=== PATIENT | male | born 1980 | race African-American/Black ===

== ENCOUNTER 2022-03-12 22:31 | Emergency (ER) | payer OTHER, SELFPAY ==
[2022-03-12 22:43] VITALS: BP 125/78; PULSE 81; RESP 20; TEMP 36.8; O2SAT 98; BMI 26.6
--- NOTE | 2022-03-12 23:07 | ED.MALEGU ---
HPI - Male Genitourinary General Chief complaint: Urogenital Problems, Male Stated complaint: Sharp pains in groin & rectum Time Seen by Provider: 03/12/22 22:55 History of Present Illness HPI Narrative: Pt is a 41 year old gentleman who presents with pain and fullness in his perineum. Pt has been having symptoms or fullness as well as occasional urethral discharge for the past month. Pt engages in unprotected heterosexual sex with multiple partners. Pt has a history of STD in the past. Pt is able to pass his urine without difficulty. No fever or chills. No nausea or vomiting. No history of HIV. Pt has no abd pain or change in sensorium. Pt also has a draining cyst onthe right buttocks medially which has been causing discomfort and drainage for the past several months. Pt states that he has not been taking care of himself and would like to start making sure that his health is ok. Related Data Home Medications Medication Instructions Recorded Confirmed No Known Home Medications 03/12/22 03/12/22 Allergies Allergy/AdvReac Type Severity Reaction Status Date / Time No Known Drug Allergies Allergy Verified 03/12/22 22:46 Review of Systems Status of ROS: Reports: 10 or more systems reviewed and unremarkable except as noted in History and below [facility] Medical History (Updated 03/12/22 @ 23:40 by Usama Tai MD) Asthma Surgical History (Updated 03/12/22 @ 23:31 by Curt Hassan RN) No significant past surgical history Exam Narrative: Exam Narrative: EXAM GENERAL: Patient appears comfortable and well. EYES: No scleral icterus. ENT: Tympanic membranes and oropharynx normal. THYROID: no thyroid nodules or thyromegaly. LYMPH: No supraclavicular or cervical lymphadenopathy. SKIN: Pt has a palpable area of fullness in the right medial buttocks without erythema 4 x 4 cm in diameter. EXT: No dependent lower extremity pedal edema. HEART: Regular rate and rhythm with no murmurs, rubs, or gallops. LUNGS: Clear to auscultation bilaterally with no crackles or wheezes. ABD: Soft, non tender, non distended. PSYCH: Good eye contact, speech is not pressured. exam shows a normal circumcised male with no testicular swelling or pain. No urethral discharge. Const: Vital Signs, click to edit/add: Vital Signs - 24 hr 03/12/22 22:43 Temperature 98.2 F Pulse Rate [Right Pulse Oximeter] 81 Respiratory Rate 20 Blood Pressure [Ri ght Upper Arm] 125/78 Pulse Oximetry 98 Oxygen Delivery Me thod Room Air Course Course Hospital Course: Pt seen and examined. Vital Signs Vital signs: Initial Vital Signs Temperature 98.2 F 03/12/22 22:43 Temperature Source Temporal Artery Scan 03/12/22 22:43 Pulse Rate 81 03/12/22 22:43 Respiratory Rate 20 03/12/22 22:43 Blood Pressure 125/78 03/12/22 22:43 Blood Pressure Mean 93 03/12/22 22:43 Blood Pressure Position Sitting 03/12/22 22:43 Pulse Oximetry 98 03/12/22 22:43 Oxygen Delivery Method 03/12/22 22:43 Vital Signs Temperature 98.2 F 03/12/22 22:43 Pulse Rate 81 03/12/22 22:43 Respiratory Rate 20 03/12/22 22:43 Blood Pressure 125/78 03/12/22 22:43 Pulse Oximetry 98 03/12/22 22:43 Oxygen Delivery Method 03/12/22 22:43 Temperature 98.2 F 03/12/22 22:43 Pulse Rate 81 03/12/22 22:43 Respiratory Rate 20 03/12/22 22:43 Blood Pressure 125/78 03/12/22 22:43 Pulse Oximetry 98 03/12/22 22:43 Oxygen Delivery Method 03/12/22 22:43 MDM - Male Genitourinary MDM Narrative Medical decision making narrative: Pt presents with urinary symptoms after multiple unprotected heterosexual encounters as well as what appears to be a cyst (potentially pilonidal) on the right buttocks. Exam otherwise normal with normal vital signs. I did treat with Azithromycin and Rocephin and collected ua, uc, and gc. Pt will follow up with me in the office for reassessment and likely surgical referral for cyst. Antibiotic regiment chosen due to pt's admitted noncompliance with medications. Differential Diagnosis Differential diagnosis: Likely urinary tract infection, urethritis, epididymitis and prostatitis Discharge Plan Discharge Clinical Impression: STD (male), Cyst Condition: Stable Additional Instructions: Both antibiotics are one time doses Symptomatic treatment for cyst Follow up with Dr. Tai in 2 weeks. Activity Level: No Restrictions Discharge Diet: Regular Prescriptions: No Action No Known Home Medications Follow Up/Referrals: Provider,Not a Local [Primary Care Provider] - Stand Alone Forms: Comfort Line Info Instructions
[2022-03-12 23:24] LABS: Appearance Urine Clear (Clear); Bilirubin Urine Negative (Negative); Blood Urine 1+ (Negative); Color Urine Yellow (Yellow); Glucose Urine Negative (Negative); Ketones Urine Negative (Negative); Leukocyte Esterase Urine Trace (Negative); Nitrite Urine Negative (Negative); Protein Urine Negative (Negative); Specific Gravity Urine >= 1.030 (1.000-1.030); Urobilinogen Urine 0.2 (0.2-1.0)
[2022-03-12 23:45] LABS: Bacteria Urine Few; Squamous Epithelial Cell Urine Few (None-Few)
[2022-03-12] MEDS: AZITHROMYCIN 250 MG TABLET 1000 MG PO (23:51)
[2022-03-12] MEDS: cefTRIAXone 1 GM VIAL 0.5 GM IM (23:51)
[2022-03-12] MEDS: LIDOCAINE 1% 5 ml (pf) 5 ML VIAL 2.1 ML IM (23:51)
[2022-03-12 23:52] VITALS: BP 131/81; PULSE 82; RESP 20; TEMP 36.7; O2SAT 98
[2022-03-12 23:53] VITALS: BP 131/81; PULSE 82; RESP 20; TEMP 36.7
[2022-03-14 12:55] LABS: GC DNA Amplified* NOT DETECTED (No Detected)
[2022-03-14 13:00] LABS: Chlamydia DNA Amplified* DETECTED (No Detected)
== END 2022-03-12 23:54 | disposition home or self-care (01) ==
PROVIDERS: Emergency Provider Internal Medicine
DX: L05.91 Pilonidal cyst without abscess (principal); A71.9 Trachoma, unspecified
CPT/HCPCS: 81003; 81015; 87086; 87491; 87591; 96372; 99283; A9270; J0696

== ENCOUNTER 2022-04-23 15:23 | Outpatient (CLI) | payer OTHER, SELFPAY ==
[2022-04-23 18:00] LABS: Albumin* 4.3 g/dL (3.3-5.0); Chloride* 106 mmol/L (96-114); Potassium* 3.8 mmol/L (3.6-5.1); Sodium* 140 mmol/L (135-149)
[2022-04-23 18:02] LABS: Carbon Dioxide* 28 mmol/L (20-32); Cholesterol* 139 mg/dL (90-199); Estimated Glomerular Filt Rate 96 ml/min
[2022-04-23 18:03] LABS: Alanine Aminotransferase* 19 U/L (4-50); Alkaline Phosphatase* 69 U/L (40-150); Aspartate Amino Transferase* 27 U/L (12-35); Bilirubin Total* 0.9 mg/dL (0.1-1.5); Blood Urea Nitrogen* 12 mg/dL (5-24); Calcium* 9.3 mg/dL (8.4-10.6); Glucose* 91 mg/dL (60-115); HDL Cholesterol* 64 mg/dL (>=40); LDL Cholesterol Calculated 66 mg/dL (<100); Total Protein* 7.2 g/dL (6.0-8.3); Triglycerides* 46 mg/dL (40-149)
== END 2022-04-23 15:24 | disposition home or self-care (01) ==
PROVIDERS: Visit Provider Internal Medicine
DX: R30.0 Dysuria (principal); Z30.09 Encounter for other general counseling and advice on contraception; Z13.6 Encounter for screening for cardiovascular disorders
CPT/HCPCS: 80053; 80061; 87086

== ENCOUNTER 2023-05-08 15:22 | Outpatient (CLI) | payer OTHER, SELFPAY ==
--- OUTSIDE RECORDS SUMMARY | 2023-05-08 15:24 | XMS_ITS | Clinical Summary ---
Author Name Unknown Organization [facility] Address [place], [place] [address] Care Team Providers Care [employer] Crewmember Name Role Phone Pcp, No Primary Care Provider Unavailabl e Allergies No known active allergies Medications Medication Sig Dispensed Refills Start Date End Date Status cyclobenzaprine (FLEXERIL) 10 mg tabletIndications:Str ain of right hamstring muscle, initial encounter Take 1 Tablet (10 mg) by mouth 3 times daily if needed for Muscle Spasm. 30 Tablet 0 08/23/2022 Active Active Problems Problem Noted Date Diagnosed Date Tobacco abuse 11/09/2010 Immunizations Name Administration Dates Next Due Influenza, IIV3 (Age >=3 years) 12/30/2012 Tdap 03/26/2013,09/30/2009 Social History Tobacco Use Types Packs/Day Years Used Date Smoking Tobacco: Every Day Smokeless Tobacco: Never Tobacco Cessation:Ready to Q uit: No; Counseling Given: Yes Comments:occasional Alcohol Use Standard Drinks/Week Comments Yes 0 (1 standard drink = 0.6 oz pur e alcohol) occas. Sex and Gender Information Value Date Recorded Sex Assigned at Not on file Gender Identity Not on file Sexual Orientation Not on file Obstetrics History Last Filed Vital Signs Vital Sign Reading Time Taken Comments Blood Pressure 109/69 08/23/2022 3:41 PM CDT Pulse 73 08/23/2022 3:41 PM CDT Temperature 37 ??C (98.6 ??F) 08/23/2022 3:41 PM CDT Respiratory Rate 16 08/23/2022 3:41 PM CDT Oxygen Saturation 97% 08/23/2022 3:41 PM CDT Inhaled Oxygen Concentration - - Weight 61.9 kg (136 lb 8 oz) 08/23/2022 3:41 PM CDT Height 172.7 cm (5' 8) 09/30/2009 1:31 AM CDT Body Mass Index - - Plan of Treatment Health Maintenance Due Date Last Done Comments Depression screening for age 12+ 1991 BMI (ht and wt on same day) for age 18+ 10/22/1997 Hepatitis C screening for ag e 18-79 10/22/1997 Lipids for age 35-44 10/22/2014 COVID-19 vaccine series (2022- season) 2022 09/14/2020 Influenza for age 9-49 11/23/2022 12/30/2012 Tetanus booster 03/26/2023 03/26/2013, 09/30/2009 Tdap Completed 03/26/2013, 09/30/2009 HIV for age 15-65 Completed 11/29/2015 Pneumococcal series for age 6-64 Aged Out No longer eligible b ased on patient's age to complete this topic Care Teams [employer] Crewmember Relationship Specialty Start Date End Date Pcp, No . PCP - General 10/30/17
== END 2023-05-08 15:23 | disposition home or self-care (01) ==
LOC: NFLDREF 15:23
PROVIDERS: Visit Provider Internal Medicine
DX: R31.9 Hematuria, unspecified (principal); R30.0 Dysuria
CPT/HCPCS: 87086; G0103

== ENCOUNTER 2023-05-16 14:49 | Outpatient (CLI) | payer OTHER, SELFPAY ==
--- NOTE | 2023-05-16 15:00 | CT_ITS ---
Patient: TAYLER RANGEL Facility:?[facility] Patient ID:?[id number] Site Patient ID:?[id number]. Site :?[id number] Study:?CT-Abdomen/Pelvis w/o-05/16/2023 3:08:20 PM Ordering Physician:?Usama Tai Final Report: Indication: Hematuria Technique: Routine noncontrast CT abdomen and pelvis Please note that all CT scans at this facility use dose modulation, iterative reconstruction, and/or weight-based dosing when appropriate to reduce radiation dose to as low as reasonably achievable. Comparison: None Findings: Lung bases are clear. No pleural effusion. Noncontrast enhanced liver appears normal. Gallbladder incompletely distended. No calcified gallstones. Normal spleen. Pancreas normal. Adrenal glands are unremarkable. Normal kidneys, ureters and bladder. Early calcifications within the right common iliac artery. Left pelvic phleboliths. No bowel obstruction or free air. No free fluid or abscess. The appendix is elongated with incidental appendicolith formation. However, the appendix is normal in diameter without adjacent inflammatory change. No adenopathy. There is no fracture. Impression: No renal, ureteral or bladder stone. No evidence of appendicitis. Please note that all CT scans at this facility use dose modulation, iterative reconstruction, and/or weight-based dosing when appropriate to reduce radiation dose to as low as reasonably achievable. Dictated by Sachin Romo MD @ 05/17/2023 12:05:40 PM Signed by:?Sachin Romo MD @05/17/2023 12:05:40 PM (Electronic Signature)
== END 2023-05-16 14:50 | disposition home or self-care (01) ==
LOC: CT 14:50
PROVIDERS: PCP Internal Medicine; Visit Provider Internal Medicine
DX: R31.9 Hematuria, unspecified (principal)
CPT/HCPCS: 74176

== ENCOUNTER 2023-06-04 15:57 | Outpatient (CLI) | payer OTHER, SELFPAY | END 2023-06-04 15:58 | disposition home or self-care (01) | LOC: NFLDREF 06-05 06:28 | PROVIDERS: PCP Internal Medicine; Referring Provider Internal Medicine; Visit Provider Internal Medicine | DX: R31.9 Hematuria, unspecified (principal) | CPT/HCPCS: 87086 ==